=== PATIENT | male | born 1985 | race Caucasian/White ===

== ENCOUNTER 2021-07-19 14:07 | Emergency (ER) | payer OTHER ==
--- NOTE | 2021-07-19 14:27 | ED Physician Documentation ---
PD HPI MALE - Stated complaint Stated Complaint: MGU LEFT SIDE - Chief complaint Chief Complaint: General - History obtained from History obtained from: Patient - History of Present Illness Timing - onset: How many months ago Timing - duration: Months (Has had some pain in the left scrotum and testicle for the last month waxing and waning. Seen in the clinic this past week [place] the [employer] [place] with urine test, STI testing and ultrasound of the scrotum. He states the findings were epididymal swelling. He is on doxycycline and naproxen 3 days.) Timing - details: Gradual onset, Still present (increased pain the past several days despite Naproxen and Doxycycline.), Waxing and waning Associated symptoms: Dysuria, Discharge (mild intermittent.), Testiclar pain (left side.). No: Genital sore / lesion PD HPI MALE CONTRIB FACTORS: Sexually active Similar symptoms before: No diagnosis (He had a similar symptoms last November that lasted for a week or so without any treatment or diagnostics and improved.) Recently seen: Clinic ([address] [facility] Review of Systems Constitutional: denies: Fever, Chills : reports: Discharge. denies: Dysuria, Frequency Skin: denies: Rash, Lesions PD PAST MEDICAL HISTORY - Past Medical History Cardiovascular: None Respiratory: None Endocrine/Autoimmune: None - Present Medications Home Medications: Ambulatory Orders Medication Instructions Recorded Confirmed HYDROcod/ACETAM 5/325 [[place] 5/325] 1 ea PO Q6H PRN #18 tablet 07/19/21 Ondansetron Odt [Zofran] 4 mg TL Q6H PRN #15 tablet 07/19/21 - Allergies Allergies/Adverse Reactions: Allergies Allergy/AdvReac Type Severity Reaction Status Date / Time No Known Drug Allergies Allergy Verified 07/19/21 14:17 PD ED PE NORMAL - Vitals Vital signs reviewed: Yes - General General: Alert and oriented X 3, No acute distress, Well developed/nourished - Abdomen Abdomen: Soft, Non tender - Male Male : Other (no inguinal nodes nor masses. NO inguinal/scrotal hernias felt. Mild enlargement of left eipdidymis with significant tenderness. NOrmal testicle size with good cremaster reflex. Testicle itself not tender. Right side not tender. No scrotal rash/sores. ) - Rectal Rectal: Deferred - Back Back: No CVA TTP - Derm Derm: Normal color, Warm and dry, No rash Results - Vitals Vitals: Vital Signs - 24 hr 07/19/21 07/19/21 14:12 15:08 Temperature 36.5 C Heart Rate 78 60 Respiratory 16 16 Rate Blood Pressure 124/81 H 118/76 O2 Saturation 97 100 Oxygen O2 Source Room air PD MEDICAL DECISION MAKING - ED course Complexity details: considered differential (had U?S showing epididymitis 3 days ago and has been on Naproxen and DOxy for 3 days without improvement. NOt really long enough to say meds are not working. To continue current meds. Add pain meds PRN. ), d/w patient, other (to follow up PMD and follow through with Urology referral. ) Departure - Departure Disposition: Home, Self Care Clinical Impression: Testicular/scrotal pain, Epididymitis Condition: Stable Record reviewed to determine appropriate education?: Yes Follow-Up: FRANCIS GARCIA DO [Primary Care Provider] - Prescriptions: HYDROcod/ACETAM 5/325 [[place] 5/325] 1 ea PO Q6H PRN #18 tablet PRN Reason: Pain Ondansetron Odt [Zofran] 4 mg TL Q6H PRN #15 tablet PRN Reason: Nausea / Vomiting Comments: I do not necessarily see any added value in retesting the same test you just had . It is also a bit early to say that the antibiotics are not "working". I would continue with the naproxen and doxycycline as prescribed. Add ondansetron/Zofran if needed for nausea. Be sure to take the medications with food to bother your stomach less. To this we can add Tylenol every 4-6 hours if needed for pain or hydrocodone/acetaminophen if needed for worse pain in the short-term. Off work for the next 2 to 3 days to help with the symptoms. [place]. Return if worsening pain especially if abrupt worsening or worse associated with swelling of the testicle or such. I transmitted your prescriptions to [facility] pharmacy in [place]. My narcotic instructions I am prescribing a short course of narcotic pain medication for you. These are potentially dangerous and addictive medications that should be used carefully. These medications may constipate you. Take an esiq-jwy-gqaoxwv stool softener such as docusate twice daily with plenty of water while taking these medications. If you go 24 hours without a bowel movement, take etxl-[id number]-agkvvmv MiraLAX, per package instructions. Do not drink or drive while taking these medications. If you received narcotic or sedating medications while in the emergency department do not drive for 24 hours. Store this medication in a safe, secure place and out of reach of children. It is a violation of federal law to give or sell this medication to another person or to use in a manner other than prescribed. The ED will not refill narcotic prescriptions, including prescriptions lost or stolen. You can dispose of unwanted medications at the [facility]'s office or at several pharmacies such as [facility]. Forms: Activity restrictions Discharge Date/Time: 07/19/21 15:10
[2021-07-19] MEDS ORDERED: ONDANSETRON ODT 4 MG TABLET TL STA (14:50)
[2021-07-19] MEDS ORDERED: ACETAMINOPHEN 325 MG TABLET PO STA (14:50)
[2021-07-19 15:10] VITALS: BP 118/76
== END 2021-07-19 15:10 | disposition home or self-care (01) ==
LOC: EDBD → ED 14:07
DX: N45.1 Epididymitis (principal); N50.812 Left testicular pain
CPT/HCPCS: 99282; A9270; Q0162

== ENCOUNTER 2022-02-23 10:48 | Outpatient (CLI) | payer OTHER ==
--- NOTE | 2022-02-23 14:17 | MRI Report ---
PROCEDURE: Knee LT W/O INDICATIONS: PAIN IN LEFT KNEE TECHNIQUE: Noncontrast sagittal PD fast spin echo and T2 fast spin echo with fat saturation, sagittal 3-D gradie nt sequence with fat saturation; coronal T1 spin echo and PD fast spin echo with fat saturation, and axial PD fast spin echo with fat saturation through the knee. COMPARISON: None. FINDINGS: Image quality: Excellent. Menisci: The medial and lateral menisci demonstrate normal morphology and internal signal. The meni scal root ligaments appear intact. Cruciate ligaments: The anterior and posterior cruciate ligaments appear intact. Medial structures: Low-grade proximal MCL sprain at its femoral insertion is noted. The posterior ob lique ligament, semimembranosus tendon insertions, and oblique popliteal ligament, and meniscocapsula r junction appear intact. Visualized portions of the pes anserinus tendons appear normal. No abnorm al bursal fluid. Lateral structures: Low-grade proximal MCL sprain/partial thickness tear at its femoral insertion is seen. The long and short heads of the biceps femoris tendon appear intact. The popliteus tendon appe ars normal; the popliteofibular ligament appears intact. Iliotibial band appears normal. Anterior structures: The quadriceps and patellar tendons appear intact. Patellar alignment is shirin l. No femoral trochlear dysplasia or ventral trochlear prominence. No edema in the infrapatellar fa t pad. Bones and cartilage: No bone marrow contusions or fractures. The cartilage of the medial and latera l femorotibial compartments, as well as the patellofemoral compartment, appears normal in thickness. Joint space: There is physiologic knee joint fluid. Tiny Chatman's cyst. Normal appearing synovial pl icae are incidentally noted. IMPRESSION: 1. Cruciate ligaments are intact. Low-grade proximal MCL sprain. Low to moderate grade proximal LCL s prain/partial thickness tear. 2. No evidence of focal meniscal tear. 3. No marrow edema. No fracture or dislocation. Articulating cartilages are intact. No significant polly int effusion. Tiny popliteal cyst. Reviewed by: Olegario Gray MD on 02/23/2022 2:15 PM PDT Approved by: Olegario Gray MD on 02/23/2022 2:15 PM PDT Station ID: [id number]
== END 2022-02-23 10:49 | disposition home or self-care (01) ==
LOC: DI 10:48
PROVIDERS: ATTEND Family Medicine
DX: S83.412A Sprain of medial collateral ligament of left knee, initial encounter (principal); S83.422A Sprain of lateral collateral ligament of left knee, initial encounter; M71.22 Synovial cyst of popliteal space [Baker], left knee

== ENCOUNTER 2022-04-14 07:15 | Emergency (ER) | payer OTHER ==
[2022-04-14 07:33] VITALS: BP 118/87
--- NOTE | 2022-04-14 07:43 | ED Physician Documentation ---
PD HPI URI - Stated complaint Stated Complaint: FEVER/THROAT PX - Chief complaint Chief Complaint: Fever - History obtained from History obtained from: Patient - History of Present Illness Timing - onset: How many days ago (2) Timing duration: Days (2) Timing details: Abrupt onset, Still present Associated symptoms: Fever, Chills, Nasal congestion, Sore throat. No: Productive cough, Chest pain, NVD Contributing factors: No: Sick contact, Immunocompromised, Unimmunized Improves by: Medication (OTC meds for fever and sore throat.) Similar symptoms before: Has not had sx before Recently seen: Not recently seen Review of Systems Constitutional: reports: Fever, Chills, Myalgias Nose: reports: Congestion. denies: Rhinorrhea / runny nose Throat: reports: Sore throat Respiratory: reports: Cough (mild so far). denies: Dyspnea, Wheezing GI: denies: Nausea, Vomiting, Diarrhea Skin: denies: Rash, Lesions Neurologic: denies: Altered mental status, Headache PD PAST MEDICAL HISTORY - Past Medical History Cardiovascular: None Respiratory: None Endocrine/Autoimmune: None - Present Medications Home Medications: Ambulatory Orders Medication Instructions Recorded Confirmed HYDROcod/ACETAM 5/325 [[place] 5/325] 1 ea PO Q6H PRN #18 tablet 07/19/21 Ondansetron Odt [Zofran] 4 mg TL Q6H PRN #15 tablet 07/19/21 Oseltamivir [Tamiflu] 75 mg PO BID #10 cap 04/14/22 - Allergies Allergies/Adverse Reactions: Allergies Allergy/AdvReac Type Severity Reaction Status Date / Time No Known Drug Allergies Allergy Verified 07/19/21 14:17 PD ED PE NORMAL - Vitals Vital signs reviewed: Yes - General General: Alert and oriented X 3, No acute distress, Well developed/nourished - HEENT HEENT: Moist mucous membranes, Pharynx benign, Other (mild anterior adenopathy both sides. no posterior tenderness. ) - Neck Neck: Supple, no meningeal sign - Cardiac Cardiac: No murmur. No: RRR (regular but tachycardic) - Respiratory Respiratory: Clear bilaterally - Abdomen Abdomen: Soft, Non tender, No organomegaly - Derm Derm: Normal color, Warm and dry, No rash - Neuro Neuro: Alert and oriented X 3, No motor deficit, Normal speech (no hoarseness) Results - Vitals Vitals: Vital Signs - 24 hr 04/14/22 07:27 Temperature 37.4 C Heart Rate 110 H Respiratory 18 Rate Blood Pressure 118/87 H O2 Saturation 97 Oxygen O2 Source Room air - Labs Labs: Laboratory Tests 04/14/22 04/14/22 08:04 08:04 Nasal Adenovirus (PCR) NOT DETECTED Nasal B. parapertussis DNA (PCR) NOT DETECTED Nasal Coronavir 229E PCR NOT DETECTED Nasal Coronavir HKU1 PCR NOT DETECTED Nasal Coronavir NL63 PCR NOT DETECTED Nasal Coronavir OC43 PCR NOT DETECTED Nasal Enterovir/Rhinovir PCR NOT DETECTED Nasal Influenza A H3 PCR DETECTED A Nasal Influenza B PCR NOT DETECTED Nasal Parainfluen 1 PCR NOT DETECTED Nasal Parainfluen 2 PCR NOT DETECTED Nasal Parainfluen 3 PCR NOT DETECTED Nasal Parainfluen 4 PCR NOT DETECTED Nasal RSV (PCR) NOT DETECTED Nasal B.pertussis DNA PCR NOT DETECTED Nasal C.pneumoniae (PCR) NOT DETECTED Jeevan Human Metapneumo PCR NOT DETECTED Nasal M.pneumoniae (PCR) NOT DETECTED Nasal SARS-CoV-2 (PCR) NOT DETECTED Group A Strep Rapid Negative PD MEDICAL DECISION MAKING - ED course Complexity details: re-evaluated patient (shared decision to discharge and look up viral panel results. Rx for tamiflu in case is positive for flu A. ), considered differential (sounds flu like but prominent sore throat, so can get rapid strep test as well. ), d/w patient Departure - Departure Disposition: 01 Home, Self Care Clinical Impression: Upper respiratory infection Qualifiers: URI type: unspecified URI Qualified Code(s): J06.9 - Acute upper respiratory infection, unspecified Condition: Stable Record reviewed to determine appropriate education?: Yes Follow-Up: FRANCIS GARCIA DO [Primary Care Provider] - Prescriptions: Oseltamivir [Tamiflu] 75 mg PO BID #10 cap Comments: Your rapid strep test is negative. The swab will be cultured as well. We will call you in a couple of days if there is any signs of bacterial growth. Otherwise it does seem more likely to be viral. Your viral respiratory PCR panel will result in the next couple of hours. Your symptoms sound rather flulike and so I think this may end up being influenza a. If it is, then you may benefit with decreasing symptoms somewhat with oseltamivir/Tamiflu antiviral medication for influenza A. It does not work for other viruses. If your respiratory panel shows COVID, then you could benefit with a different antiviral medicine combination under the tradename pack Slo-Bid (actually 2 antivirals twice daily for 5 days). This is available at the pharmacy by pharmacist prescription and does not need a written prescription for me. You can access to results of your labs online later this morning. Mainly symptom medication of staying well-hydrated. Tylenol or ibuprofen if needed for fevers or pains. Off work today tomorrow and possibly the following day as most of these illnesses will be at least 2 or 3 days of the worst sy mptoms. Many can be even up to 5 or 6 days. You have a Covid test pending. You need to self quarantine until the result is done and negative. Do not leave your house. Do not get near anybody. The results should be done in 48 to 72 hours, but sometimes longer. We will call with a positive result, the fastest way to get a negative result for confirmation though is to go to the hospital website at [email or web address], click on the my [facility] tab and sign up for the patient portal. If any friends or family get sick and would like to have a Covid test done, but do not have signs or symptoms that would necessitate being hospitalized, we encourage testing throughone of the local pharmacies or the Health Department. Call them to schedule an appointment. Forms: Activity restrictions Discharge Date/Time: 04/14/22 09:19
[2022-04-14] MEDS ORDERED: LIDOCAINE VISCOUS 2% 15 ML UDC MM STA (07:53)
[2022-04-14] MEDS ORDERED: ACETAMINOPHEN 325 MG TABLET PO STA (07:53)
[2022-04-14] MEDS ORDERED: MAG HYDROX/AL HYDROX/SIMETH 30 ML UDC PO STA (07:53)
[2022-04-14] MEDS ORDERED: IBUPROFEN 600 MG TABLET PO STA (07:53)
[2022-04-14 08:31] LABS: RAPID STREP SCREEN Negative (Negative)
[2022-04-14 09:12] LABS: CORONAVIRUS 229E-RESP PCR NOT DETECTED; CORONAVIRUS HKU1-RESP PCR NOT DETECTED; CORONAVIRUS NL63-RESP PCR NOT DETECTED; CORONAVIRUS OC43-RESP PCR NOT DETECTED; HUMAN METAPNEUMOVIRUS NOT DETECTED; SARS-CoV-2 -RESP PCR PANEL NOT DETECTED
[2022-04-14 09:13] LABS: B. PARAPERTUSSIS- RESP PCR PAN NOT DETECTED; B. PERTUSSIS- RESP PCR PANEL NOT DETECTED; C. PNEUMONIAE- RESP PCR PANEL NOT DETECTED; INFLUENZA A H3- RESP PCR PANEL DETECTED; INFLUENZA B - RESP PCR PANEL NOT DETECTED; M. PNEUMONIAE- RESP PCR PANEL NOT DETECTED; PARAINFLUENZA VIRUS 1 NOT DETECTED; PARAINFLUENZA VIRUS 2 NOT DETECTED; PARAINFLUENZA VIRUS 3 NOT DETECTED; PARAINFLUENZA VIRUS 4 NOT DETECTED; RHINOVIRUS/ENTEROVIRUS NOT DETECTED; RSV- RESP PCR PANEL NOT DETECTED
== END 2022-04-14 09:19 | disposition home or self-care (01) ==
LOC: ED 07:15
DX: J10.1 Influenza due to other identified influenza virus with other respiratory manifestations (principal); J06.9 Acute upper respiratory infection, unspecified
CPT/HCPCS: 87070; 87430; 87633; 99282; 99283; A9270